=== PATIENT | female | born 1975 ===

== ENCOUNTER 2020-06-14 11:35 | Emergency (ER) | payer OTHER, SELFPAY ==
[2020-06-14] VITALS (9 sets, daily range): BP systolic 126–143; BP diastolic 66–86; PULSE 71–84; RESP 16; TEMP 36.7; O2SAT 97–99; BMI 39.1
[2020-06-14 12:53] LABS: COVID19 -Nasal RAPID Negative (Negative)
[2020-06-14] MEDS: SODIUM CHLORIDE 0.9% 1,000 ML 1000 ML IV (13:09)
[2020-06-14] MEDS: PANTOPRAZOLE 40 MG VIAL IV (13:10)
[2020-06-14] MEDS: DICYCLOMINE 10 MG CAPSULE 20 MG PO (13:11)
[2020-06-14 13:16] LABS: Add Manual Diff / Slide Review NO; Basophils Absolute Auto 0 /uL (0-100); Basophils Percent Auto 0.4 % (0-2); Eosinophils Absolute Auto 300 /uL (0-450); Eosinophils Percent Auto 5.2 % (2-4); Hemoglobin 13.4 g/dL (12.0-16.0); Lymphocytes Absolute Auto 1600 /uL (1100-4500); Mean Corpuscular HGB Conc 34.3 % (30-36); Mean Corpuscular Hemoglobin 32.1 PG (26-34); Mean Corpuscular Volume 93.6 fL (80-100); Monocytes Absolute Auto 500 /uL (0-900); Monocytes Percent Auto 8.4 % (3-14); Neutrophils Absolute Auto 3800 /uL (1500-7000); Platelet Count 296 X10^3/uL (150-400); Red Blood Cell Count 4.16 X10^6/uL (4.0-5.2); Red Cell Distribution Width 12.1 % (11.6-14.8); White Blood Cell Count 6.3 X10^3/uL (4.5-11.0)
[2020-06-14 13:26] LABS: Alanine Aminotransferase 19 IU/L (<35); Albumin 4.1 g/dL (3.5-5.0); Albumin Globulin Ratio 1.3 (1.0-2.8); Alkaline Phosphatase 63 U/L (38-126); Aspartate Aminotransferase 25 IU/L (14-36); BUN Creatinine Ratio 17.2 (6-22); Bilirubin Total 0.4 mg/dL (0.2-1.3); Blood Urea Nitrogen 10 mg/dL (7-17); Calcium 8.8 mg/dL (8.4-10.2); Carbon Dioxide 30 mmol/L (22-32); Chloride 105 mmol/L (98-107); Estimated Glomerular Filt Rate > 60.0 mL/min (>60); Globulin 3.1 g/dL (1.7-4.1); Glucose 98 mg/dL (70-100); HEMOLYSIS < 15 (0-50); Lipase 48 U/L (23-300); Potassium 3.9 mmol/L (3.4-5.1); Sodium 138 mmol/L (137-145); Total Protein 7.2 g/dL (6.3-8.2)
[2020-06-14 13:27] LABS: Lactate (Lactic Acid) 0.8 mmol/L (0.7-2.1)
--- NOTE | 2020-06-14 13:31 | DI.CT.S_ITS ---
PROCEDURE: CT ABDOMEN PELVIS W CON INDICATIONS: upper abdomen pain, severe diarrhea, hx of IBS TECHNIQUE: After the administration of intravenous contrast, 5 mm thick sections acquired from the diaphragm to the symphysis. 5 mm coronal and sagittal reformats were acquired. For radiation dose reduction, the following was used: automated exposure control, adjustment of mA and/or kV according to patient size. COMPARISON: [facility], US, US PELVIC COMPLETE WITH TRANSVAGINAL, 05/03/2019, 10:03. FINDINGS: Image quality: Excellent. ABDOMEN: Lung bases: Lung bases are clear. Heart size is normal. Breast implants. Solid organs: Liver is normal in size and enhancement. A few well-circumscribed hypodensities most compatible with benign cyst or hemangioma. Gallbladder is not significantly distended. 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 No calcified gallstones seen. Question of gallbladder sludge. Biliary system is non dilated. Pancreas enhances normally. Spleen is normal in size and enhancement. Small splenule. No adrenal nodules. Kidneys demonstrate normal size and enhancement, without hydronephrosis. No obvious kidney stones. Peritoneum and bowel: Bowel loops demonstrate normal wall thickness and caliber. Diverticulosis. No diverticulitis identified. Normal appendix. No free fluid or air. Nodes and vessels: Prominent periportal lymph nodes. Aorta and inferior vena cava are normal in size. Miscellaneous: Small fat containing periumbilical hernia. PELVIS: Genitourinary: Bladder is decompressed. Uterus is surgically absent. Suspect small left ovarian cyst. Miscellaneous: No inguinal hernias or adenopathy. Bones: No suspicious bony lesions. No vertebral body compression fractures. IMPRESSION: 1. No acute inflammatory process is identified. No free fluid. 2. Question of gallbladder sludge. Mildly prominent periportal lymph nodes. -Gallbladder ultrasound could be considered for further evaluation of the gallbladder. 3. Diverticulosis without diverticulitis. 4. Suspect small left ovarian cyst. Uterus is absent. Dictated by: Tre Servin M.D. on 06/14/2020 at 13:02 Approved by: Tre Servin M.D. on 06/14/2020 at 13:11
--- NOTE | 2020-06-14 13:43 | ED_ITS ---
HPI - Nausea/Vomiting/Diarrhea <Cornelius PALOMA Holbrook - Last Filed: 06/14/20 15:55> General Chief complaint: Nausea/Vomiting/Diarrhea Stated complaint: IBS flare up since Monday, sent by [facility] Time Seen by Provider: 06/14/20 12:02 Source: patient Mode of arrival: Ambulatory Limitations: no limitations History of Present Illness HPI Narrative: This is a 44 year female, nonsmoker, who has past medical history significant for hysterectomy, kidney stone with surgery, breast augmentation and reconstruction surgeries, IBS presents to ED with chief complain of severe diarrhea for last 4 days with abdominal and right flank discomfort. Patient reports her IBS symptoms mostly flares up by stress and certain diet and usually either diarrhea or alternating diarrhea and constipation. Patient has been doing very well and has not seen GI specialist Dr. Ordoñez at [place] for last 5 years with avoiding IBS exacerbating diets. Patient reports she had received massage right before her symptoms started and had not hydrated enough with water and had an orange. The abdominal pain and diarrhea was worst 2 days ago and she couldn't make it to the bathroom and incontinence. Patient tried [id number] Imodium but that not touched her symptoms. She reports subjective sweats and chills. Every time she attempts to hydrate, she reports it runs through her and have another episode of loose stools. Patient also started taking Pepto-Bismol which changed her stool color. However, she does not believe has blood in her stools. Patient tried bland food with rice and toast yesterday and felt miserable from abdominal pain. Patient also noticed urinary frequency and urgency before diarrhea started but has been postponing evaluation. Patient denies recent antibiotic medication use, foreign travel, drinking untreated water or unusual food, camping. Patient denies chest pain, d yspnea, recent exposure to Covid 19. She denies other family member are sick with similar symptoms. She visited [facility] this morning and referred to emergency room for further evaluation. PCP Dr. Vishal Hubbard. Related Data Home Medications Medication Instructions Recorded Confirmed lamotrigine 200 mg tablet 400 mg PO DAILY 08/12/19 08/12/19 methylphenidate HCl 55 mg biphasic 55 mg PO QAM 08/12/19 08/12/19 (20-80) extended release capsule propranolol PO 08/12/19 08/12/19 titazidine PO 08/12/19 Previous Rx's Medication Instructions Recorded albuterol sulfate 90 mcg/actuation 2 puff INHALATION Q4-6H PRN #8.5 08/12/19 aerosol inhaler gram inhalational spacing device #1 each 08/12/19 dicyclomine 10 mg PO QID PRN #10 cap 06/14/20 ondansetron 4 mg PO Q8H PRN #10 tab 06/14/20 Allergies Allergy/AdvReac Type Severity Reaction Status Date / Time amoxicillin Allergy Severe hives Verified 06/14/20 11:53 clindamycin Allergy Unknown can't Verified 06/14/20 11:53 remember acetaminophen [From Percocet] AdvReac Severe blacks out Verified 06/14/20 11:53 oxycodone [From Percocet] AdvReac Severe blacks out Verified 06/14/20 11:53 Review of Systems <PALOMA Molina - Last Filed: 06/14/20 15:55> Review of Systems Narrative: General: See HPI HEENT: Denies sinus pain, ear pain, sore throat, difficulty swallowing, dizziness. Respiratory: Denies dyspnea, cough, wheezing, hemoptysis, sputum. Cardiovascular: Denies chest pain, palpitations, orthopnea, edema. Gastrointestinal: See HPI : See HPI Musculoskeletal: (+) right flank pain. Denies weakness, joint pain or bony pain. Skin: Denies rash, skin lesions, or other. Neurologic: Denies weakness, headache, numbness, change in speech, confusion, se izures, incoordination. Psychiatric: No concerning psychosocial issues. 12-point review of systems is negative except for those stated above. Patient History <PALOMA Molina - Last Filed: 06/14/20 15:55> Medical History Kidney stone Surgical History H/O breast augmentation H/O breast reconstruction H/O: hysterectomy Social History Smoking Status: Never smoker Smoking Status: Never smoker alcohol intake frequency: 0-2 drinks per day Substance Use Type: does not use Exam <Cornelius PALOMA Holbrook - Last Filed: 06/14/20 15:55> Narrative Exam Narrative: GEN: Alert, oriented x 3, well appearing and nourished, and in no acute distress. Head: Normal cephalic, atraumatic. No scalp or temporal tenderness, palpable mass or rash. EYES: Pupils are equal, round, and reactive to light and accommodation. Extraocular muscles are intact bilaterally. There is no subconjunctival hemorrhage, exudate and sclera non-icteric. ENT: Hearing grossly intact. Nose without bleeding, purulent discharge or deviation. Facial sinuses nontender to palpate. Mucous membrane moist, no mucosal lesion. Throat without erythema, tonsillar hypertrophy or exudate. Uvula in midline, airway patent. Neck: Trachea in midline. No JVD, non-tender without lymphadenopathy. No masses or thyroid megaly. Supple, non-tender and no meningeal signs. CARDIAC: Normal regular rate and rhythm without murmurs, gallops, or rubs. No chest wall tenderness. No peripheral edema, cyanosis or pallor. Capillary refill is less than 2 seconds. RESPIRATORY: Lungs are clear to auscultate bilaterally. No cough, wheezes, rales, or rhonchi. No stridor, respiratory distress, increase work of breathing, or accessary muscle used. ABD: Abdomen soft and non-distended. Tender to palpate in bilateral upper abdomen. No guarding or rebound tenderness to palpate. Bowel sounds are normal in all 4 quadrants. There is no palpable masses or organomegaly. EXT: Full painless ROM of all extremities with no loss of sensation, strength, effusion or edema. SKIN: Warm, dry, normal color for patient. No erythema, lesions or rash over visible areas. BACK: Nontender without deformity or crepitance. No flank tenderness. NEUROLOGICAL: Alert and oriented to place, time and person. Sensation and motor function intact bilaterally. No facial droops, dysphasia. PSYCHIATRIC: Good judgement and reason, without hallucinations, abnormal affect or abnormal behaviors during the examination. Initial Vital Signs Initial Vital Signs: Vital Signs Pulse Rate 80 06/14/20 11:47 Pulse Oximetry 98 06/14/20 11:47 <Tanisha Chamberlain DO - Last Filed: 06/16/20 06:57> Initial Vital Signs Initial Vital Signs: Vital Signs Pulse Rate 80 06/14/20 11:47 Pulse Oximetry 98 06/14/20 11:47 Scores <[facility] Yusef [facility] - Last Filed: 06/14/20 15:55> GCS Isa coma scale eye opening: Spontaneous Isa coma scale verbal response: Orientated Bradley coma scale motor response: Obey commands Bradley coma scale total score: 15 qSOFA Altered Mental Status (GCS <15): No Respiratory rate greater than/equal to 22: No Systolic blood pressure less than or equal to 100: No qSOFA Total: 0 0-1 Not High Risk 1-3 High risk Course <[facility] - Last Filed: 06/14/20 15:55> Orders Ordered: Discontinued Medications Dicyclomine HCl (Dicyclomine 10 Mg Capsule) 20 mg PO NOW ONE Stop: 06/14/20 12:22 Last Admin: 06/14/20 13:11 Dose: 20 mg Documented by: RMARTIN Sodium Chloride (Normal Saline 0.9%) 1,000 mls @ 1,000 mls/hr IV CONT KOKO Last Infusion: 06/14/20 14:39 Dose: 0 mls/hr Documented by: Admin: 06/14/20 13:09 Dose: 1,000 mls/hr Documented by: RMARTIN Pantoprazole Sodium (Pantoprazole 40 Mg Vial) 40 mg IV NOW ONE Stop: 06/14/20 12:22 Last Admin: 06/14/20 13:10 Dose: 40 mg Documented by: RMARTIN Reevaluation(s) Reevaluation #1: Patient denies nausea. She has been medicated with Bentyl and pantoprazole. She declined other medications for discomfort at this time. Patient has not had any stools to provide sample at this time. Time: 13:50 Vital Signs Vital signs: Vital Signs - 8 hr 06/14/20 11:47 06/14/20 11:48 06/14/20 11:49 Temperature 98.1 F Pulse Rate 80 78 77 Respiratory Rate 16 Blood Pressure 141/75 H 141/75 H Pulse Oximetry 98 98 98 06/14/20 12:00 06/14/20 12:01 06/14/20 13:20 Temperature Pulse Rate 84 78 71 Respiratory Rate Blood Pressure 126/78 Pulse Oximetry 97 97 99 12/20/20 13:21 06/14/20 14:43 Temperature Pulse Rate 76 77 Respiratory Rate 16 Blood Pressure 143/79 H 135/66 Pulse Oximetry 98 99 <Tanisha Chamberlain DO - Last Filed: 06/16/20 06:57> Orders Ordered: Discontinued Medications Dicyclomine HCl (Dicyclomine 10 Mg Capsule) 20 mg PO NOW ONE Stop: 06/14/20 12:22 Last Admin: 06/14/20 13:11 Dose: 20 mg Documented by: LOWELLARTIN Sodium Chloride (Normal Saline 0.9%) 1,000 mls @ 1,000 mls/hr IV CONT KOKO Last Infusion: 06/14/20 14:39 Dose: 0 mls/hr Documented by: Admin: 06/14/20 13:09 Dose: 1,000 mls/hr Documented by: RMARTIN Pantoprazole Sodium (Pantoprazole 40 Mg Vial) 40 mg IV NOW ONE Stop: 06/14/20 12:22 Last Admin: 06/14/20 13:10 Dose: 40 mg Documented by: DAVIDE Vital Signs Vital signs: Vital Signs - 8 hr 06/14/20 11:47 06/14/20 11:48 06/14/20 11:49 Temperature 98.1 F Pulse Rate 80 78 77 Respiratory Rate 16 Blood Pressure 141/75 H 141/75 H Pulse Oximetry 98 98 98 06/14/20 12:00 06/14/20 12:01 06/14/20 13:20 Temperature Pulse Rate 84 78 71 Respiratory Rate Blood Pressure 126/78 Pulse Oximetry 97 97 99 06/14/20 13:21 06/14/20 14:43 Temperature Pulse Rate 76 77 Respiratory Rate 16 Blood Pressure 143/79 H 135/66 Pulse Oximetry 98 99 MDM - Nausea/Vomiting/Diarrhea <PALOMA Molina - Last Filed: 06/14/20 15:55> Differential Diagnosis Differential diagnosis: Likely dehydration and other (Enteritis, diverticulitis, infectious diarrhea, IBS exacerbation) Medical Records Attestation: I reviewed the patient's medical records. Lab Data Attestation: I reviewed the patient's lab results. Result diagrams: 06/14/20 13:05 06/14/20 13:05 Labs: Lab Results 06/14/20 06/14/2006/14/20 Range/Units 12:35 13:05 13:05 WBC 6.3 (4.5-11.0) X10^3/uL RBC 4.16 (4.0-5.2) X10^6/uL Hgb 13.4 (12.0-16.0) g/dL Hct 39.0 (36-46) % MCV 93.6 (80-100) fL MCH 32.1 (26-34) PG MCHC 34.3 (30-36) % RDW 12.1 (11.6-14.8) % Plt Count 296 (150-400) X10^3/uL Neut % (Auto) 61.0 (50-75) % Lymph % (Auto) 25.0 (25-40) % Murray % (Auto) 8.4 (3-14) % Eos % (Auto) 5.2 H (2-4) % Baso % (Auto) 0.4 (0-2) % Neut # (Auto) 3800 (1679-4164) /uL Lymph # (Auto) 1600 (0809-1848) /uL Murray # (Auto) 500 (0-900) /uL Eos # (Auto) 300 (0-450) /uL Baso # (Auto) 0 (0-100) /uL Sodium 138 (137-145) mmol/L Potassium 3.9 (3.4-5.1) mmol/L Chloride 105 (98-107) mmol/L Carbon Dioxide 30 (22-32) mmol/L BUN 10 (7-17) mg/dL Creatinine 0.58 (0.52-1.04) mg/dL Estimated GFR > 60.0 (>60) mL/min BUN/Creatinine Ratio 17.2 (6-22) Glucose 98 (70-100) mg/dL Lactate (0.7-2.1) mmol/L Calcium 8.8 (8.4-10.2) mg/dL Total Bilirubin 0.4 (0.2-1.3) mg/dL AST 25 (14-36) IU/L ALT 19 (<35) IU/L Alkaline Phosphatase 63 (38-126) U/L Total Protein 7.2 (6.3-8.2) g/dL Albumin 4.1 (3.5-5.0) g/dL Globulin 3.1 (1.7-4.1) g/dL Albumin/Globulin Ratio 1.3 (1.0-2.8) Lipase 48 (23-300) U/L COVID-19 PCR Negative (Negative) 06/14/20 Range/Units 13:05 WBC (4.5-11.0) X10^3/uL RBC (4.0-5.2) X10^6/uL Hgb (12.0-16.0) g/dL Hct (36-46) % MCV (80-100) fL MCH (26-34) PG MCHC (30-36) % RDW (11.6-14.8) % Plt Count (150-400) X10^3/uL Neut % (Auto) (50-75) % Lymph % (Auto) (25-40) % Murray % (Auto) (3-14) % Eos % (Auto) (2-4) % Baso % (Auto) (0-2) % Neut # (Auto) (3512-0316) /uL Lymph # (Auto) (2648-5616) /uL Murray # (Auto) (0-900) /uL Eos # (Auto) (0-450) /uL Baso # (Auto) (0-100) /uL Sodium (137-145) mmol/L Potassium (3.4-5.1) mmol/L Chloride (98-107) mmol/L Carbon Dioxide (22-32) mmol/L BUN (7-17) mg/dL Creatinine (0.52-1.04) mg/dL Estimated GFR (>60) mL/min BUN/Creatinine Ratio (6-22) Glucose (70-100) mg/dL Lactate 0.8 (0.7-2.1) mmol/L Calcium (8.4-10.2) mg/dL Total Bilirubin (0.2-1.3) mg/dL AST (14-36) IU/L ALT (<35) IU/L Alkaline Phosphatase (38-126) U/L Total Protein (6.3-8.2) g/dL Albumin (3.5-5.0) g/dL Globulin (1.7-4.1) g/dL Albumin/Globulin Ratio (1.0-2.8) Lipase (23-300) U/L COVID-19 PCR (Negative) Urine Dip Bedside Urine Glucose Negative Bedside Urine Bilirubin - Negative Bedside Urine Ketone +/- 5 Urine Specific [place] 1.030 Bedside Urine Occult Blood +/- Bedside Urine pH 5.5 Bedside Urine Protein - Negative Bedside Urine Urobilinogen - Negative Bedside Urine Nitrite - Negative Bedside Urine Leukocytes - Negative Esterase Imaging Data CT scan - abdomen/pelvis: Radiologist's Impression: [address] [id number] Scan ReportSigned Patient: Mariela Valiente HMR#: [id number]: 1975Acct:[id number]/Sex: 44 / FDate of Service: 06/14/20Loc: EDAccession Number: [id number] Procedure: CT abdomen pelvis w con Ordering Provider: Cornelius Holbrook PROCEDURE: CT ABDOMEN PELVIS W CON INDICATIONS: upper abdomen pain, severe diarrhea, hx of IBS TECHNIQUE: After the administration of intravenous contrast, 5 mm thick sections acquired from the diaphragm to the symphysis. 5 mm coronal and sagittal reformats were acquired. For radiation dose reduction, the following was used: automated exposure control, adjustment of mA and/or kV according to patient size. COMPARISON: [facility], US, US PELVIC COMPLETE WITH TRANSVAGINAL, 05/03/2019, 10:03. FINDINGS: Image quality: Excellent. ABDOMEN: Lung bases: Lung bases are clear. Heart size is normal. Breast implants. Solid organs: Liver is normal in size and enhancement. A few well- circumscribed hypodensities most compatible with benign cyst or hemangioma. Gallbladder is not significantly distended. 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 No calcified gallstones seen. Question of gallbladder sludge. Biliary system is non dilated. Pancreas enhances normally. Spleen is normal in size and enhancement. Small splenule. No adrenal nodules. Kidneys demonstrate normal size and enhancement, without hydronephrosis. No obvious kidney stones. Peritoneum and bowel: Bowel loops demonstrate normal wall thickness and calib er. Diverticulosis. No diverticulitis identified. Normal appendix. No free fluid or air. Nodes and vessels: Prominent periportal lymph nodes. Aorta and inferior vena cava are normal in size. Miscellaneous: Small fat containing periumbilical hernia. PELVIS: Genitourinary: Bladder is decompressed. Uterus is surgically absent. Suspect small left ovarian cyst. Miscellaneous: No inguinal hernias or adenopathy. Bones: No suspicious bony lesions. No vertebral body compression fractures. IMPRESSION: 1. No acute inflammatory process is identified. No free fluid. 2. Question of gallbladder sludge. Mildly prominent periportal lymph nodes. -Gallbladder ultrasound could be considered for further evaluation of the gallbladder. 3. Diverticulosis without diverticulitis. 4. Suspect small left ovarian cyst. Uterus is absent. Dictated by: Tre Servin M.D. on 06/14/2020 at 13:02 Approved by: Tre Servin M.D. on 06/14/2020 at 13:11 US - abdomen: Radiologist's Impression: [address] [id number] ReportSigned Patient: Mariela Valiente HMR#: [id number]: 1975Acct:[id number]/Sex: 44 / FDate of Service: 06/14/20Loc: EDAccession Number: [id number] Procedure: US abdomen limited Ordering Provider: Cornelius Holbrook PROCEDURE: US ABDOMEN LIMITED INDICATIONS: GB SLUDGE ON CT TECHNIQUE: Real-time scanning was performed of the right upper quadrant, with image documentation. COMPARISON: [facility], CT, CT ABDOMEN PELVIS W CON, 06/14/2020, 13:33. FINDINGS: Liver: Liver is normal in size and homogeneous in echotexture. Gallbladder: Not significantly distended.. No stones or sludge. Normal gallbladder wall thickness. Phrygian cap noted. No pericholecystic fluid. Negative sonographic Crenshaw's sign. Biliary ducts: Intrahepatic bile ducts are non-dilated. Extrahepatic bile duct caliber measures 5 mm. Normal is 6-7 mm or less in diameter, or 10 mm or less post-cholecystectomy. Pancreas: Visualized portions of the pancreas are sonographically normal. IMPRESSION: No acute cholecystitis. No gallstones or sludge. Dictated by: Tre Servin M.D. on 06/14/2020 at 14:24 Approved by: Tre Servin M.D. on 06/14/2020 at 14:26 MDM Narrative Medical decision making narrative: This is a 44 year female who presents to ED with possible IBS exacerbation with multiple episodes of diarrhea and upper abdomen and right flank discomfort with intermittent nausea. Patient had used Imodium and Zofran for her symptoms the much improvement. Patient reports subjective fever and chills. Abdomen physical exam appreciated some tenderness to palpate in upper abdomen but no Crenshaw's sign, no flank tenderness to percuss. Urine test shows no indications for infection. Unremarkable CBC without leukocytosis. Lactate was normal. Unremarkable chemistry test with normal kidney function test and LFTs. COVID test was negative. Given patient has history of abdominal surgery and today's visit is [facility], concerned for colitis, diverticulitis, or other infectious etiology, CT of abdomen and pelvis ordered and obtained. CT of abdomen and pelvis result indicates no acute inflammatory process, diverticulosis without diverticulitis, possible small left ovarian cyst, a few small well-circumscribed benign cyst or hemangioma in liver appreciated. Also, showed questionable gallbladder sludge and further imaging test with ultrasound suggested. Ultrasound of upper abdomen obtained and did not show gallstone, sludge, or ductal dilation. Patient felt moderately improved in abdominal pain. She was not able provide stool sample. Patient discharged to home with as needed use for Zofran and Bentyl. Patient has been using Imodium and informed it is okay to use this as long as no infectious signs. Patient advised continue with supportive care with oral hydration in small amount but frequently. Return precautions were discussed and advised to follow up with PCP and GI specialist. Patient verbalized understanding in agreement with the treatment plan. <Tanisha Chamberlain, - Last Filed: 06/16/20 06:57> Lab Data Labs: Lab Results 06/14/20 06/14/20 06/14/20 Range/Units 12:35 13:05 13:05 WBC 6.3 (4.5-11.0) X10^3/uL RBC 4.16 (4.0-5.2) X10^6/uL Hgb 13.4 (12.0-16.0) g/dL Hct 39.0 (36-46) % MCV 93.6 (80-100) fL MCH 32.1 (26-34) PG MCHC 34.3 (30-36) % RDW 12.1 (11.6-14.8) % Plt Count 296 (150-400) X10^3/uL Neut % (Auto) 61.0 (50-75) % Lymph % (Auto) 25.0 (25-40) % Murray % (Auto) 8.4 (3-14) % Eos % (Auto) 5.2 H (2-4) % Baso % (Auto) 0.4 (0-2) % Neut # (Auto) 3800 (1535-4638) /uL Lymph # (Auto) 1600 (3459-2056) /uL Murray # (Auto) 500 (0-900) /uL Eos # (Auto) 300 (0-450) /uL Baso # (Auto) 0 (0-100) /uL Sodium 138 (137-145) mmol/L Potassium 3.9 (3.4-5.1) mmol/L Chloride 105 (98-107) mmol/L Carbon Dioxide 30 (22-32) mmol/L BUN 10 (7-17) mg/dL Creatinine 0.58 (0.52-1.04) mg/dL Estimated GFR > 60.0 (>60) mL/min BUN/Creatinine Ratio 17.2 (6-22) Glucose 98 (70-100) mg/dL Lactate (0.7-2.1) mmol/L Calcium 8.8 (8.4-10.2) mg/dL Total Bilirubin 0.4 (0.2-1.3) mg/dL AST 25 (14-36) IU/L ALT 19 (<35) IU/L Alkaline Phosphatase 63 (38-126) U/L Total Protein 7.2 (6.3-8.2) g/dL Albumin 4.1 (3.5-5.0) g/dL Globulin 3.1 (1.7-4.1) g/dL Albumin/Globulin Ratio 1.3 (1.0-2.8) Lipase 48 (23-300) U/L COVID-19 PCR Negative (Negative) 06/14/20 Range/Units 13:05 WBC (4.5-11.0) X10^3/uL RBC (4.0-5.2) X10^6/uL Hgb (12.0-16.0) g/dL Hct (36-46) % MCV (80-100) fL MCH (26-34) PG MCHC (30-36) % RDW (11.6-14.8) % Plt Count (150-400) X10^3/uL Neut % (Auto) (50-75) % Lymph % (Auto) (25-40) % Murray % (Auto) (3-14) % Eos % (Auto) (2-4) % Baso % (Auto) (0-2) % Neut # (Auto) (7805-1062) /uL Lymph # (Auto) (2595-8193) /uL Murray # (Auto) (0-900) /uL Eos # (Auto) (0-450) /uL Baso # (Auto) (0-100) /uL Sodium (137-145) mmol/L Potassium (3.4-5.1) mmol/L Chloride (98-107) mmol/L Carbon Dioxide (22-32) mmol/L BUN (7-17) mg/dL Creatinine (0.52-1.04) mg/dL Estimated GFR (>60) mL/min BUN/Creatinine Ratio (6-22) Glucose (70-100) mg/dL Lactate 0.8 (0.7-2.1) mmol/L Calcium (8.4-10.2) mg/dL Total Bilirubin (0.2-1.3) mg/dL AST (14-36) IU/L ALT (<35) IU/L Alkaline Phosphatase (38-126) U/L Total Protein (6.3-8.2) g/dL Albumin (3.5-5.0) g/dL Globulin (1.7-4.1) g/dL Albumin/Globulin Ratio (1.0-2.8) Lipase (23-300) U/L COVID-19 PCR (Negative) Urine Dip Bedside Urine Glucose Negative Bedside Urine Bilirubin - Negative Bedside Urine Ketone +/- 5 Urine Specific [place] 1.030 Bedside Urine Occult Blood +/- Bedside Urine pH 5.5 Bedside Urine Protein - Negative Bedside Urine Urobilinogen - Negative Bedside Urine Nitrite - Negative Bedside Urine Leukocytes - Negative Esterase Discharge Plan Departure Patient Disposition: Home Clinical Impression: Abdominal pain Qualifiers: Abdominal location: upper abdomen, unspecified Qualified Code(s): R10.10 - Upper abdominal pain, unspecified Diarrhea Qualifiers: Diarrhea type: unspecified type Qualified Code(s): R19.7 - Diarrhea, unspecified Instructions: Diarrhea (Alternative Therapy), DI for Abdominal Pain-Adult, Loperamide Activity Restrictions/Additional Instructions: You have been diagnosed with [upper abdominal pain and diarrhea likely from IBS exacerbation. You were treated with IV fluid, Bentyl and Protonix in ED with so me relief. Abdomen/pelvis CT exam indicates no acute inflammatory process, diverticulosis without diverticulitis, and incidental finding of small left ovarian cyst and a few small size benign cyst or hemangioma in the liver. Upper abdominal ultrasound does not show gallbladder sludge, stones, ductal dilation. Labs are assuring. No indications for UTI.]. What to do: *Take your medications as directed. You can take Bentyl as needed for cramping discomfort and Zofran as needed for nausea. Please hydrate adequately in small amounts frequently and eat bland diet in small amounts. This medication have been transmitted to [facility]. *Follow up with your primary care provider in 2-3 days, call for an appointment. Let them know you were seen in the ED and that we asked you to be seen in follow up. Please follow-up with GI specialist as well. *Return to ED if you have any new, worsening, or concerning symptoms, such as [worsening pain, fever, blood in her stool, unable to tolerate fluids, chest pain, breathing difficulty, near syncope or any acute concerns]. Prescriptions: New dicyclomine 10 mg capsule 10 mg PO QID PRN (Reason: cramping pain) Qty: 10 RF: 0 ondansetron 4 mg tablet,disintegrating 4 mg PO Q8H PRN (Reason: nausea and vomiting) Qty: 10 RF: 0 No Action propranolol PO RF: 0 titazidine PO RF: 0 lamotrigine 200 mg tablet 400 mg PO DAILY RF: 0 methylphenidate HCl 55 mg capsule, ER biphasic 20-80 55 mg PO QAM RF: 0 albuterol sulfate 90 mcg/actuation HFA aerosol inhaler 2 puff INHALATION Q4-6H PRN (Reason: shortness of breath or wheezing) Qty: 8.5 RF: 0 (DME) AeroTrach Plus Spacer See Rx Instructions .ROUTE .MEDSUPPLY Qty: 1 RF: 0 Referrals: Kenyatta Hubbard MD [Primary Care Provider] - <Tanisha Chamberlain DO - Last Filed: 06/16/20 06:57> Cosign ED Attending Caryature Attestation: I was immediately available in the department for consultation. Documentation has been reviewed. I agree with assessment and plan.
--- NOTE | 2020-06-14 14:24 | DI.US.S_ITS ---
PROCEDURE: US ABDOMEN LIMITED INDICATIONS: GB SLUDGE ON CT TECHNIQUE: Real-time scanning was performed of the right upper quadrant, with image documentation. COMPARISON: [facility], CT, CT ABDOMEN PELVIS W CON, 06/14/2020, 13:33. FINDINGS: Liver: Liver is normal in size and homogeneous in echotexture. Gallbladder: Not significantly distended.. No stones or sludge. Normal gallbladder wall thickness. Phrygian cap noted. No pericholecystic fluid. Negative sonographic Crenshaw's sign. Biliary ducts: Intrahepatic bile ducts are non-dilated. Extrahepatic bile duct caliber measures 5 mm. Normal is 6-7 mm or less in diameter, or 10 mm or less post-cholecystectomy. Pancreas: Visualized portions of the pancreas are sonographically normal. IMPRESSION: No acute cholecystitis. No gallstones or sludge. Dictated by: Tre Servin M.D. on 06/14/2020 at 14:24 Approved by: Tre Servin M.D. on 06/14/2020 at 14:26
== END 2020-06-14 15:50 | disposition home or self-care (01) ==
PROVIDERS: Emergency Provider Nurse Practitioner Family; PCP Family Medicine
DX: R10.10 Upper abdominal pain, unspecified (principal); R19.7 Diarrhea, unspecified; K58.9 Irritable bowel syndrome, unspecified; R11.0 Nausea; R50.9 Fever, unspecified
CPT/HCPCS: 36415; 74177; 76705; 80053; 81003; 83605; 83690; 85025; 87635; 96361; 96374; 99284; C9113; Q9967

== ENCOUNTER → 2021-08-23 09:13 | Outpatient (CLI) | payer OTHER, SELFPAY | PROVIDERS: PCP Family Medicine; Visit Provider Nurse Practitioner Family | DX: R30.0 Dysuria (principal) | CPT/HCPCS: 87086; 87210 ==

== ENCOUNTER 2022-12-04 21:04 | Emergency (ER) | payer OTHER, SELFPAY ==
[2022-12-04 21:10] VITALS: BP 156/78; PULSE 96; RESP 18; TEMP 36.1; O2SAT 95; BMI 40.7
--- NOTE | 2022-12-04 21:19 | DI.US.S_ITS ---
PROCEDURE: US PERIPH VENOUS LOW EXTREM LT INDICATIONS: LEFT KNEE REPAIR 2 WEEKS AGO. INCREASING PAIN/SWELLING. FEVER. TECHNIQUE: Real-time imaging, as well as color and pulse Doppler interrogation, were performed of the lower extremity deep veins from the inguinal ligament to the popliteal fossa. COMPARISON: None. FINDINGS: The common femoral, femoral and popliteal veins are normally compressible, and free of intraluminal thrombus. Color and pulse Doppler demonstrate normal phasic intraluminal flow. There is normal augmentation response to distal compression maneuver. IMPRESSION: 1. No evidence of deep venous thrombosis in the left lower extremity. Dictated by: rIaj Boyd M.D. on 12/04/2022 at 23:20 Approved by: Iraj Boyd M.D. on 12/04/2022 at 23:20
[2022-12-04 23:04] VITALS: BP 140/84; PULSE 84; RESP 16; O2SAT 98
--- NOTE | 2022-12-04 23:30 | DI.CT.S_ITS ---
P the ROCEDURE: CT KNEE LEFT WITH CON INDICATIONS: Swelling and pain status post recent surgery. TECHNIQUE: Noncontrast 1-1.5 mm axial sections acquired from the mid-patella to the proximal tibia, with coronal and sagittal reformats. COMPARISON: [facility], CR, XR KNEE 4+ VIEWS BILATERAL, 02/15/2021, 11:01. FINDINGS: Image quality: Excellent. Bones: There are postsurgical changes consistent with prior ACL reconstruction with surgical tracts in the lateral femoral condyle and proximal tibia. No fractures or dislocation. No discrete bony erosions or periosteal reaction. Soft tissues: There is a moderate to large joint effusion with synovial thickening and enhancement. No evidence of gas within the joint space or visualized soft tissues. Scarring demonstrated within the pretibial soft tissues. The ACL and PCL are not well visualized on CT. IMPRESSION: 1. Moderate to large joint effusion with synovial thickening and enhancement. The findings are nonspecific and may reflect reactive changes from recent surgery but infection cannot be excluded. 2. No fractures or definite radiographic evidence of osteomyelitis. Dictated by: Iraj Boyd M.D. on 12/05/2022 at 1:11 Approved by: Iraj Boyd M.D. on 12/05/2022 at 1:16
--- NOTE | 2022-12-04 23:32 | ED_ITS ---
HPI - Recheck/Abnormal Lab/Rx <Vishal Amaya MD - Last Filed: 12/07/22 07:05> General Chief Complaint: Recheck/Abnormal Lab/Rx Stated Complaint: Surgery two weeks ago on knee, says potential DVT Time Seen by Provider: 12/04/22 23:04 Mode of arrival: Family Vehicle History of Present Illness HPI narrative: Patient brought here by parents for complaints of left knee pain since surgery [address] teresa Foss. Patient was doing well in the 1st week with pain control however last few days has had limited movement of her knee with pain and swelling and redness/warmth. Has had chills but no fever. No nausea or vomiting. Related Data Home Medications Medication Instructions Recorded Confirmed methylphenidate HCl 55 mg biphasic 55 mg PO QAM 08/12/19 12/05/22 (20-80) extended release capsule duloxetine 60 mg capsule,delayed 60 mg PO DAILY 12/05/22 12/05/22 release hydromorphone 2 mg tablet See Rx Instructions .Route .COMPLEX 12/05/22 12/05/22 propranolol 20 mg tablet 20 mg PO DAILY 12/05/22 12/05/22 Previous Rx's Medication Instructions Recorded dicyclomine 10 mg capsule 10 mg PO QID PRN cramping pain #10 06/14/20 caps ondansetron 4 mg disintegrating 4 mg PO Q8H PRN nausea and 06/14/20 tablet vomiting #10 tabs Allergies Allergy/AdvReac Type Severity Reaction Status Date / Time amoxicillin Allergy Severe hives Verified 12/04/22 21:14 clindamycin Allergy Unknown can't Verified 12/04/22 21:14 remember acetaminophen [From Percocet] AdvReac Severe blacks out Verified 12/04/22 21:14 oxycodone [From Percocet] AdvReac Severe blacks out Verified 12/04/22 21:14 Review of Systems <Vishal Amaya MD - Last Filed: 12/07/22 07:05> Review of Systems Narrative: GENERAL: Positive chills, neck fatigue, malaise, fever, sweats. HEENT: negative sinus pain, ear pain, sore throat RESPIRATORY: negative dyspnea, cough CARDIOVASCULAR: negative chest pain, palpitations GASTROINTESTINAL: negative nausea, vomiting, abdominal pain : negative dysuria, frequency, hematuria MUSCULOSKELETAL: Positive muscle or bony pain SKIN: negative rash, skin lesions NEUROLOGIC: negative weakness, numbness ROS Unobtainable: All systems reviewed & are unremarkable except as noted in HPI and below Patient History <Vishal Amaya MD - Last Filed: 12/07/22 07:05> Medical History Kidney stone Surgical History H/O breast augmentation H/O breast reconstruction H/O: hysterectomy Social History Smoking Status: Never smoker Smoking Status: Never smoker alcohol intake frequency: 0-2 drinks per day Substance Use Type: does not use Exam <Vishal Amaya MD - Last Filed: 12/07/22 07:05> Narrative Exam Narrative: GENERAL: in no distress, not toxic not dyspneic HEAD: Normocephalic. EYES: Pupils equal round ENT: Mucous membranes moist. EXTREMITIES: No gross deformities. Examination left lower extremity. Left knee is more edematous compared to the right. It is warmer to touch compared to the right. Slightly erythematous. Nontender calf. Limited passive and active range of motion due to pain. No crepitus. No lymphangitis, incisions are clean dry and intact, light touch intact to foot and toes. Brisk cap refills. Strong pedal pulse. Wiggles toes. Strong ankle flexion and extension. Compared to the right knee. Unable to see or feel landmarks of the knee anteriorl due to extensive swelling. NEURO: AOx4. SKIN: Warm and dry PSYCH: Not anxious, is cooperative Initial Vital Signs Initial Vital Signs: Vital Signs Temperature 97 F L 12/04/22 21:10 Pulse Rate 96 H 12/04/22 21:10 Respiratory Rate 18 12/04/22 21:10 Blood Pressure 156/78 H 12/04/22 21:10 Pulse Oximetry 95 12/04/22 21:10 Oxygen Delivery Method Room Air 12/04/22 21:10 <Tanisha Sutton DO - Last Filed: 12/05/22 18:36> Initial Vital Signs Initial Vital Signs: Vital Signs Temperature 97 F L 12/04/22 21:10 Pulse Rate 96 H 12/04/22 21:10 Respiratory Rate 18 12/04/22 21:10 Blood Pressure 156/78 H 12/04/22 21:10 Pulse Oximetry 95 12/04/22 21:10 Oxygen Delivery Method Room Air 12/04/22 21:10 Procedures <Vishal Amaya MD - Last Filed: 12/07/22 07:05> Joint Aspiration Joint Asp./Inject. 1: Time of procedure: 04:26 Side of body: left Joint Aspirated: knee Ultrasound Guidance: No Skin Prep: Chlorhexidine Local Anesthetic: lidocaine 1% and with epi Amount of anesthesia used (mL): 4 Needle Size Used: 18G Additional Comments: Five attempts made to try to aspirate knee joint and unsuccessful from lateral/superior aspect <Tanisha Sutton DO - Last Filed: 12/05/22 18:36> Bursa Procedure Side of body: left Site of Procedure: prepatellar bursa Antisepsis Used: Chlorhexidine Local Anesthetic: lidocaine 1% and with epi Amount of anesthesia used (mL): 3 Fluid obtained (mL): 0 Patient Tolerated Procedure: Well and No complications Additional Comments: Unsuccessful Course <Vishal Amaya MD - Last Filed: 12/07/22 07:05> Orders Ordered: Discontinued Medications Hydromorphone HCl (Hydromorphone 1 Mg Inj) 1 mg IV NOW ONE Stop: 12/04/22 23:31 Last Admin: 12/04/22 23:43 Dose: 1 mg Documented By: Hydromorphone HCl (Hydromorphone 1 Mg Inj) 1 mg IV NOW ONE Stop: 12/05/22 02:54 Last Admin: 12/05/22 02:57 Dose: 1 mg Documented By: Hydromorphone HCl (Hydromorphone 1 Mg Inj) 1 mg IV NOW ONE Stop: 12/05/22 03:51 Last Admin: 12/05/22 03:58 Dose: 1 mg Documented By: Hydromorphone HCl (Hydromorphone 1 Mg Inj) 1 mg IV NOW ONE Stop: 12/05/22 07:04 Last Admin: 12/05/22 07:14 Dose: 1 mg Documented By: AT Hydromorphone HCl (Hydromorphone 1 Mg Inj) 1 mg IV NOW ONE Stop: 12/05/22 09:28 Last Admin: 12/05/22 09:48 Dose: 1 mg Documented By: CRISTINA Ketorolac Tromethamine (Ketorolac 30 Mg/Ml Vial) 15 mg IV NOW ONE Stop: 12/05/22 08:30 Last Admin: 12/05/22 09:14 Dose: 15 mg Documented By: RB Ondansetron HCl (Ondansetron 4 Mg/2 Ml Inj) 4 mg IV NOW ONE Stop: 12/04/22 23:31 Last Admin: 12/04/22 23:43 Dose: 4 mg Documented By: Ondansetron HCl (Ondansetron 4 Mg/2 Ml Inj) 4 mg IV NOW ONE Stop: 12/05/22 08:30 Last Admin: 12/05/22 09:15 Dose: 4 mg Documented By: RB Vital Signs Vital signs: Vital Signs - 8 hr 12/05/22 02:30 12/05/22 02:57 12/05/22 02:57 Pulse Rate 84 95 H Blood Pressure 140/82 Pulse Oximetry 95 95 12/05/22 03:00 12/05/22 03:00 12/05/22 03:30 Pulse Rate 84 84 Blood Pressure 142/80 H Pulse Oximetry 96 92 12/05/22 04:00 12/05/22 04:17 12/05/22 04:17 Pulse Rate 85 88 Blood Pressure 141/82 H Pulse Oximetry 99 96 12/05/22 04:30 12/05/22 04:30 12/05/22 05:00 Pulse Rate 84 Blood Pressure 146/89 H 160/91 H Pulse Oximetry 96 12/05/22 05:00 12/05/22 05:30 12/05/22 06:00 Pulse Rate 87 84 87 Blood Pressure Pulse Oximetry 92 93 93 12/05/22 06:01 12/05/22 06:01 12/05/22 06:30 Pulse Rate 85 Blood Pressure 135/78 140/83 Pulse Oximetry 93 12/05/22 06:30 12/05/22 07:00 12/05/22 07:01 Pulse Rate 87 91 H 86 Blood Pressure Pulse Oximetry 94 95 95 12/05/22 07:01 12/05/22 07:30 12/05/22 07:30 Pulse Rate 82 Blood Pressure 162/73 H 156/96 H Pulse Oximetry 94 12/05/22 07:57 12/05/22 07:57 12/05/22 08:00 Pulse Rate 88 Blood Pressure 151/78 H 136/65 Pulse Oximetry 96 12/05/22 08:00 12/05/22 08:30 12/05/22 08:31 Pulse Rate 92 H 88 Blood Pressure 164/93 H Pulse Oximetry 94 94 12/05/22 08:31 12/05/22 09:00 12/05/22 09:00 Pulse Rate 86 86 Blood Pressure 160/90 H Pulse Oximetry 94 96 12/05/22 09:30 12/05/22 09:31 12/05/22 09:31 Pulse Rate 85 85 Blood Pressure 148/72 H Pulse Oximetry 97 98 <Tanisha Sutton DO - Last Filed: 12/05/22 18:36> Orders Ordered: Discontinued Medications Hydromorphone HCl (Hydromorphone 1 Mg Inj) 1 mg IV NOW ONE Stop: 12/04/22 23:31 Last Admin: 12/04/22 23:43 Dose: 1 mg Documented By: Hydromorphone HCl (Hydromorphone 1 Mg Inj) 1 mg IV NOW ONE Stop: 12/05/22 02:54 Last Admin: 12/05/22 02:57 Dose: 1 mg Documented By: Hydromorphone HCl (Hydromorphone 1 Mg Inj) 1 mg IV NOW ONE Stop: 12/05/22 03:51 Last Admin: 12/05/22 03:58 Dose: 1 mg Documented By: Hydromorphone HCl (Hydromorphone 1 Mg Inj) 1 mg IV NOW ONE Stop: 12/05/22 07:04 Last Admin: 12/05/22 07:14 Dose: 1 mg Documented By: AT Hydromorphone HCl (Hydromorphone 1 Mg Inj) 1 mg IV NOW ONE Stop: 12/05/22 09:28 Last Admin: 12/05/22 09:48 Dose: 1 mg Documented By: ZYARA Ketorolac Tromethamine (Ketorolac 30 Mg/Ml Vial) 15 mg IV NOW ONE Stop: 12/05/22 08:30 Last Admin: 12/05/22 09:14 Dose: 15 mg Documented By: RB Ondansetron HCl (Ondansetron 4 Mg/2 Ml Inj) 4 mg IV NOW ONE Stop: 12/04/22 23:31 Last Admin: 12/04/22 23:43 Dose: 4 mg Documented By: Ondansetron HCl (Ondansetron 4 Mg/2 Ml Inj) 4 mg IV NOW ONE Stop: 12/05/22 08:30 Last Admin: 12/05/22 09:15 Dose: 4 mg Documented By: RB Vital Signs Vital signs: Vital Signs - 8 hr 12/05/22 02:30 12/05/22 02:57 12/05/22 02:57 Pulse Rate 84 95 H Blood Pressure 140/82 Pulse Oximetry 95 95 12/05/22 03:00 12/05/22 03:00 12/05/22 03:30 Pulse Rate 84 84 Blood Pressure 142/80 H Pulse Oximetry 96 92 12/05/22 04:00 12/05/22 04:17 12/05/22 04:17 Pulse Rate 85 88 Blood Pressure 141/82 H Pulse Oximetry 99 96 12/05/22 04:30 12/05/22 04:30 12/05/22 05:00 Pulse Rate 84 Blood Pressure 146/89 H 160/91 H Pulse Oximetry 96 12/05/22 05:00 12/05/22 05:30 12/05/22 06:00 Pulse Rate 87 84 87 Blood Pressure Pulse Oximetry 92 93 93 12/05/22 06:01 12/05/22 06:01 12/05/22 06:30 Pulse Rate 85 Blood Pressure 135/78 140/83 Pulse Oximetry 93 12/05/22 06:30 12/05/22 07:00 12/05/22 07:01 Pulse Rate 87 91 H 86 Blood Pressure Pulse Oximetry 94 95 95 12/05/22 07:01 12/05/22 07:30 12/05/22 07:30 Pulse Rate 82 Blood Pressure 162/73 H 156/96 H Pulse Oximetry 94 12/05/22 07:57 12/05/22 07:57 12/05/22 08:00 Pulse Rate 88 Blood Pressure 151/78 H 136/65 Pulse Oximetry 96 12/05/22 08:00 12/05/22 08:30 12/05/22 08:31 Pulse Rate 92 H 88 Blood Pressure 164/93 H Pulse Oximetry 94 94 12/05/22 08:31 12/05/22 09:00 12/05/22 09:00 Pulse Rate 86 86 Blood Pressure 160/90 H Pulse Oximetry 94 96 12/05/22 09:30 12/05/22 09:31 12/05/22 09:31 Pulse Rate 85 85 Blood Pressure 148/72 H Pulse Oximetry 97 98 [facility] - Recheck/Abnormal Lab/Rx <Vishal Amaya MD - Last Filed: 12/07/22 07:05> Lab Data 12/04/22 23:38 12/04/22 23:38 Labs: Lab Results 12/04/22 12/04/22 Range/Units 23:38 23:38 WBC 12.2 H (4.5-11.0) X10^3/uL RBC 3.72 L (4.0-5.2) X10^6/uL Hgb 11.9 L (12.0-16.0) g/dL Hct 35.0 L (36-46) % MCV 94.1 (80-100) fL MCH 32.1 (26-34) PG MCHC 34.1 (30-36) % RDW 12.2 (11.6-14.8) % Plt Count 478 H (150-400) X10^3/uL Neut % (Auto) 78.3 H (50-75) % Lymph % (Auto) 11.6 L (25-40) % [place] % (Auto) 8.5 (3-14) % Eos % (Auto) 1.0 L (2-4) % Baso % (Auto) 0.6 (0-2) % Neut # (Auto) 9600 H (5648-6096) /uL Lymph # (Auto) 1400 (6560-8333) /uL [place] # (Auto) 1000 H (0-900) /uL Eos # (Auto) 100 (0-450) /uL Baso # (Auto) 100 (0-100) /uL ESR 111 H (0-20) MM/HR Sodium 134 L (137-145) mmol/L Potassium 4.0 (3.4-5.1) mmol/L Chloride 94 L (98-107) mmol/L Carbon Dioxide 32 (22-32) mmol/L BUN 12 (7-17) mg/dL Creatinine 0.60 (0.52-1.04) mg/dL Estimated GFR > 60 (>60) mL/min BUN/Creatinine Ratio 20.0 (6-22) Glucose 133 H (70-100) mg/dL Calcium 9.0 (8.4-10.2) mg/dL Total Bilirubin 0.3 (0.2-1.3) mg/dL AST 21 (14-36) IU/L ALT 22 (<35) IU/L Alkaline Phosphatase 76 (38-126) U/L C-Reactive Protein 22.0 H (<1.0) mg/dL Total Protein 7.8 (6.3-8.2) g/dL Albumin 3.9 (3.5-5.0) g/dL Globulin 3.9 (1.7-4.1) g/dL Albumin/Globulin Ratio 1.0 (1.0-2.8) MDM Narrative Medical decision making narrative: Patient brought here by parents for complaints of left knee pain since surgery [address] teresa Foss. Patient was doing well in the 1st week with pain control however last few days has had limited movement of her knee with pain and swelling and redness/warmth. Has had chills but no fever. No nausea or vomiting. After history and exam CBC CMP ESR CRP CT left knee with IV contrast pain control venous ultrasound [facility] CC: Left knee pain and swelling Complicating co-morbidities: Recent knee surgery 2 weeks ago Data collected from: Patient and family Medical records reviewed: No recent visits for this complaint Differential considered: Includes but not limited to postop wound infect ion/septic joint Exam documented above, pertinent findings include: Tender edematous erythematous left knee with limited range of motion Lab Test results independently reviewed as above. Pertinent findings: WBC 12.2 CRP 22 ESR 111 Imaging studies independently reviewed: Venous ultrasound of the leg no DVT CT left knee with IV contrast moderate to large joint effusion with synovial th ickening Consultations: 3:30 a.m.. Spoke with Orthopedics, Dr. Guevara, on-call for Dr. Serrano, we may try for aspirating fluid superolateral aspect of the patella. If unable then sent patient to the office this morning for office attempt. No antibiotics at this time. Treatments: Normal saline Dilaudid Re-evaluations: 3:17 a.m.. We have been waiting for call back from Orthopedics with patient's surgeons team. Reviewed results so far. They do understand at this time awaiting for further instructions for disposition from orthopedics. 4:15 a.m.. Multiple attempts for lateral approach for needle aspiration unsuccessful. Patient and father do agree for pain control here until office opens in the morning for family to transport patient to the office. With patient's swelling edema makes procedure technically difficult here. However, if there is orthopedic services available here this morning we will try to consult for joint aspiration, alternative would be for radiology services for ultrasound-guided aspiration Discussion: Diagnosis: December 05, 2022 at 7:00 a.m. Jose Luis: Sign out to Dr Sutton need to try to page orthopedics on-call this morning for attempt to aspirate knee joint otherwise will need to be discharged to go to patient's office when opens but need to call to inform office for Dr. Guevara <Tanisha Sutton, - Last Filed: 12/05/22 18:36> Lab Data Labs: Lab Results 12/04/22 12/04/22 Range/Units 23:38 23:38 WBC 12.2 H (4.5-11.0) X10^3/uL RBC 3.72 L (4.0-5.2) X10^6/uL Hgb 11.9 L (12.0-16.0) g/dL Hct 35.0 L (36-46) % MCV 94.1 (80-100) fL MCH 32.1 (26-34) PG MCHC 34.1 (30-36) % RDW 12.2 (11.6-14.8) % Plt Count 478 H (150-400) X10^3/uL Neut % (Auto) 78.3 H (50-75) % Lymph % (Auto) 11.6 L (25-40) % [place] % (Auto) 8.5 (3-14) % Eos % (Auto) 1.0 L (2-4) % Baso % (Auto) 0.6 (0-2) % Neut # (Auto) 9600 H (2036-0579) /uL Lymph # (Auto) 1400 (2339-1791) /uL [place] # (Auto) 1000 H (0-900) /uL Eos # (Auto) 100 (0-450) /uL Baso # (Auto) 100 (0-100) /uL ESR 111 H (0-20) MM/HR Sodium 134 L (137-145) mmol/L Potassium 4.0 (3.4-5.1) mmol/L Chloride 94 L (98-107) mmol/L Carbon Dioxide 32 (22-32) mmol/L BUN 12 (7-17) mg/dL Creatinine 0.60 (0.52-1.04) mg/dL Estimated GFR > 60 (>60) mL/min BUN/Creatinine Ratio 20.0 (6-22) Glucose 133 H (70-100) mg/dL Calcium 9.0 (8.4-10.2) mg/dL Total Bilirubin 0.3 (0.2-1.3) mg/dL AST 21 (14-36) IU/L ALT 22 (<35) IU/L Alkaline Phosphatase 76 (38-126) U/L C-Reactive Protein 22.0 H (<1.0) mg/dL Total Protein 7.8 (6.3-8.2) g/dL Albumin 3.9 (3.5-5.0) g/dL Globulin 3.9 (1.7-4.1) g/dL Albumin/Globulin Ratio 1.0 (1.0-2.8) MDM Narrative Medical decision making narrative: Patient brought here by parents for complaints of left knee pain since surgery [address] teresa Foss. Patient was doing well in the 1st week with pain control however last few days has had limited movement of her knee with pain and swelling and redness/warmth. Has had chills but no fever. No nausea or vomiting. After history and exam CBC CMP ESR CRP CT left knee with IV contrast pain control venous ultrasound [facility] CC: Left knee pain and swelling Complicating co-morbidities: Recent knee surgery 2 weeks ago Data collected from: Patient and family Medical records reviewed: No recent visits for this complaint Differential considered: Includes but not limited to postop wound infection/septic joint Exam documented above, pertinent findings include: Tender edematous erythematous left knee with limited range of motion Lab Test results independently reviewed as above. Pertinent findings: WBC 12.2 CRP 22 ESR 111 Imaging studies independently reviewed: Venous ultrasound of the leg no DVT CT left knee with IV contrast moderate to large joint effusion with synovial thickening Consultations: 3:30 a.m.. Spoke with Orthopedics, Dr. Guevara, on-call for Dr. Serrano, we may try for aspirating fluid superolateral aspect of the patella. If unable then sent patient to the office this morning for office attempt. No antibiotics at this time. Treatments: Normal saline Dilaudid Re-evaluations: 3:17 a.m.. We have been waiting for call back from Orthopedics with patient's surgeons team. Reviewed results so far. They do understand at this time awaiting for further instructions for disposition from orthopedics. 4:15 a.m.. Multiple attempts for lateral approach for needle aspiration unsuccessful. Patient and father do agree for pain control here until office opens in the morning for family to transport patient to the office. With patien t's swelling edema makes procedure technically difficult here. However, if there is orthopedic services available here this morning we will try to consult for joint aspiration, alternative would be for radiology services for ultrasound-guided aspiration Discussion: Diagnosis: December 05, 2022 at 7:00 a.m. Jose Luis: Sign out to Dr Sutton need to try to page orthopedics on-call this morning for attempt to aspirate knee joint otherwise will need to be discharged to go to patient's office when opens but need to call to inform office for Dr. Ismael sutton: Patient signed out to me by Dr. Amaya seen evaluated patient myself. She does have quite a bit of edema and swelling in her left knee no significant erythema she is had ice on it so is cool to touch with good distal pedal pulse. DVT has been ruled out on CT shows a large effusion. She is not allowed to bear weight so she does not she is not had fever here although she reports that she would a fever at home of 100.7, to me but did not to Dr. Amaya. She did not have a fever upon initial presentation however it was not checked for the next 12 hours and she reports sweating last night. She has mild leukocytosis of 12 with elevated ESR CRP obvious concern is for septic joint however patient is hemodynamically stable. Dr. Sutton attempted an arthrocentesis multiple times but unfortunately due to body habitus and significant swelling loss of landmarks it was difficult. At this time plan is to get patient up to Dr. Serrano office, orthopedic for re-evaluation by surgeon and arthrocentesis. He is requesting s omething else for pain she is had multiple doses of Dilaudid to have only helped a little. 08:53am Dr Serrano wrap it ankle to knee no need for emergent or urgent arthrocentesis. Recommends follow-up in clinic. Based on patient's history of fever she has remained afebrile here I attempted arthrocentesis or patellar bursa aspiration unfortunately not able to aspirate fluid. She reports that the swelling came on suddenly. I encouraged her to call her orthopedic surgeon and follow-up as soon as possible. At this time orthopedic also recommend no antibiotic until arthrocentesis. Afebrile with stable vitals here. Discharge Plan Departure Patient Disposition: Home Clinical Impression: Post-operative pain Instructions: DI for Postoperative Pain Activity Restrictions/Additional Instructions: *You have been diagnosed with postoperative pain and swelling *What to do: At this time please take her temperature regularly and call your orthopedic surgeon today to schedule follow up appointment as soon as possible. Unfortunately we were not able to drain fluid off your knee today however I do so recommend that it done. Please monitor for infection *Continue to take medications as directed Take pain medications as previously prescribed *Follow up with your primary care provider in 2-3 days or call [phone] Serrano today *Return to ER if you should have increasing swelling redness pain fever greater than 100.4 or any new, worsening or concerning symptoms Prescriptions: No Action methylphenidate HCl 55 mg capsule, ER biphasic 20-80 55 mg PO QAM dicyclomine 10 mg capsule 10 mg PO QID PRN (Reason: cramping pain) Qty: 10 0RF ondansetron 4 mg tablet,disintegrating 4 mg PO Q8H PRN (Reason: nausea and vomiting) Qty: 10 0RF duloxetine 60 mg capsule,delayed release(DR/EC) 60 mg PO DAILY propranolol 20 mg Tablet 20 mg PO DAILY hydromorphone 2 mg tablet See Rx Instructions .ROUTE .COMPLEX Patient Comments: TAKE 1 TO 2 TABLETS BY MOUTH EVERY 6 TO 8 HOURS NEEDED FOR POST OP PAIN Rx Instructions: TAKE 1 TO 2 TABLETS BY MOUTH EVERY 6 TO 8 HOURS NEEDED FOR POST OP PAIN Referrals: Kenyatta Hubbard MD [Primary Care Provider] - Stand Alone Forms: Patient Portal/API
[2022-12-04] MEDS: ONDANSETRON 4 MG/2 ML INJ IV (23:43)
[2022-12-04] MEDS: HYDROMORPHONE 1 MG INJ IV (23:43)
[2022-12-04 23:46] VITALS: PULSE 82; O2SAT 97
[2022-12-04 23:48] LABS: Add Manual Diff / Slide Review NO; Basophils Absolute Auto 100 /uL (0-100); Basophils Percent Auto 0.6 % (0-2); Eosinophils Absolute Auto 100 /uL (0-450); Hemoglobin 11.9 g/dL (12.0-16.0); Lymphocytes Absolute Auto 1400 /uL (1100-4500); Lymphocytes Percent Auto 11.6 % (25-40); Mean Corpuscular HGB Conc 34.1 % (30-36); Mean Corpuscular Hemoglobin 32.1 PG (26-34); Mean Corpuscular Volume 94.1 fL (80-100); Monocytes Absolute Auto 1000 /uL (0-900); Monocytes Percent Auto 8.5 % (3-14); Neutrophils Absolute Auto 9600 /uL (1500-7000); Neutrophils Percent Auto 78.3 % (50-75); Platelet Count 478 X10^3/uL (150-400); Red Blood Cell Count 3.72 X10^6/uL (4.0-5.2); Red Cell Distribution Width 12.2 % (11.6-14.8); White Blood Cell Count 12.2 X10^3/uL (4.5-11.0)
[2022-12-04 23:58] LABS: Alanine Aminotransferase 22 IU/L (<35); Albumin 3.9 g/dL (3.5-5.0); Alkaline Phosphatase 76 U/L (38-126); Aspartate Aminotransferase 21 IU/L (14-36); Bilirubin Total 0.3 mg/dL (0.2-1.3); Blood Urea Nitrogen 12 mg/dL (7-17); Carbon Dioxide 32 mmol/L (22-32); Chloride 94 mmol/L (98-107); Estimated Glomerular Filt Rate > 60 mL/min (>60); Globulin 3.9 g/dL (1.7-4.1); Glucose 133 mg/dL (70-100); HEMOLYSIS < 15 (0-50); Sodium 134 mmol/L (137-145); Total Protein 7.8 g/dL (6.3-8.2)
[2022-12-05] VITALS (30 sets, daily range): BP systolic 130–164; BP diastolic 62–96; PULSE 80–95; RESP 12; O2SAT 92–99
[2022-12-05 00:11] LABS: Erythrocyte Sedimentation Rate 111 MM/HR (0-20)
[2022-12-05] MEDS: HYDROMORPHONE 1 MG INJ IV ×4 (02:57→09:48)
[2022-12-05] MEDS: KETOROLAC 30 MG/ML VIAL 15 MG IV (09:14)
[2022-12-05] MEDS: ONDANSETRON 4 MG/2 ML INJ IV (09:15)
== END 2022-12-05 10:50 | disposition home or self-care (01) ==
PROVIDERS: Emergency Medicine; Emergency Provider Emergency Medicine; PCP Family Medicine
DX: G89.18 Other acute postprocedural pain (principal); M25.562 Pain in left knee; R50.9 Fever, unspecified
CPT/HCPCS: 36415; 73701; 80053; 85025; 85651; 86140; 93971; 96374; 96375; 96376; 99284; J1170; J1885; J2405; Q9967